=== PATIENT | male | born 1970 | race Caucasian/White ===

== ENCOUNTER → 2020-09-29 | Outpatient (CLI) | payer OTHER ==
--- NOTE | 2020-09-30 07:13 | CTL ---
EXAMINATION TYPE: CT Low Dose Lung DATE OF EXAM ORDERED: 09/29/2020 COMPARISON: HISTORY: . Low Dose CT Lung Screening CT DLP: 64.[address] CTDI: 1.8 mGy IV CONTRAST USED: None. SCREENING VISIT: First visit COMPARISON: None. TECHNIQUE: Low dose computed tomography scan was performed through the chest at 1 millimeter thick se ctions and reconstructed images in the coronal plane at [address] DIAGNOSTIC QUALITY: Satisfactory FINDINGS: LUNG NODULES: No discrete pulmonary nodules or masses seen. No infiltrates identified. LUNGS: COPD: Severity: None Fibrosis: Severity:None Lymph nodes: None Other findings: None RIGHT PLEURAL SPACE: Effusion: None Calcification: None Thickening: None Pneumothorax: None LEFT PLEURAL SPACE: Effusion: None Calcification: None Thickening: None Pneumothorax: None HEART: Heart Size: Mildly enlarged Coronary calcification: Mild Pericardial effusion: None OTHER FINDINGS: Upper abdomen: No significant abnormality Bony thorax: Degenerative changes Supraclavicular region: No significant abnormalityOther: No significant abnormalityI IMPRESSION: Benign FOLLOW UP CT CHEST RECOMMENDATION: Follow-up screening in one year. Smoking cessation recommended. CT LUNG RAD: LUNG RAD CATEGORY 1 negative
== END | disposition home or self-care (01) ==
LOC: RADCTMAIN 15:41
PROVIDERS: ATTEND Family Medicine
DX: Z12.2 Encounter for screening for malignant neoplasm of respiratory organs (principal)
CPT/HCPCS: 71271

== ENCOUNTER 2021-06-10 09:20 | Day surgery (SDC) | payer OTHER ==
[2021-06-07 16:27] VITALS: BMI 27.2
[~2021-06-10 09:20] MED LIST: LACTATED RINGERS 1,000 ML IV SCH; LIDOCAINE 1% (10MG/ML) FOR IV START INTRADERMA PRN
[2021-06-10 10:22] VITALS: RESP 16; TEMP 97.9
[2021-06-10] MEDS ORDERED: LIDOCAINE 2% INJ 20 MG/ML (2 ML VIAL) ONE (10:32)
[2021-06-10] MEDS ORDERED: PROPOFOL 10 MG/ML 20 ML VIAL IV ONE (10:32)
--- NOTE | 2021-06-10 10:34 | P.GSHP ---
History of Present Illness H&P Date: 06/10/21 Chief Complaint: Screening colonoscopy Is a 51-year-old male presents today for screening colonoscopy. Patient denies a significant GI complaints. Past Medical History Past Medical History: Hypertension History of Any Multi-Drug Resistant Organisms: MRSA Date of last positivie culture/infection: 2007 MDRO Source:: NOSE Past Surgical History: No Surgical Hx Reported Past Anesthesia/Blood Transfusion Reactions: Motion Sickness Additional Past Anesthesia/Blood Transfusion Reaction / Comment(s): NO ANESTHESIA HX. Past Psychological History: No Psychological Hx Reported Smoking Status: Current every day smoker Past Alcohol Use History: Daily Additional Past Alcohol Use History / Comment(s): SMOKES 1 PPD OR LESS, STARTED SMOKING AGE 21. DRINKS 3 BEERS /DAY. Past Drug Use History: None Reported Medications and Allergies Home Medications Medication Instructions Recorded Confirmed Type Tadalafil [Cialis] 5 mg PO DAILY 06/07/21 06/10/21 History Vitamin D 1 dose PO WEEKLY 06/07/21 06/10/21 History amLODIPine BESYLATE 10 mg PO DAILY 06/07/21 06/10/21 History buPROPion SR [Wellbutrin SR] 150 mg PO DAILY 06/07/21 06/10/21 History Allergies Allergy/AdvReac Type Severity Reaction Status Date / Time No Known Allergies Allergy Verified 06/10/21 09:54 Surgical - Exam Vital Signs Temp Pulse Resp BP Pulse Ox 97.9 F 89 16 149/95 99 06/10/21 10:12 06/10/21 10:12 06/10/21 10:12 06/10/21 10:12 06/10/21 10:12 - General well developed, well nourished, no distress - Eyes PERRL - ENT normal pinna - Neck no masses - Respiratory normal expansion - Cardiovascular Rhythm: regular - Abdomen Abdomen: soft, non tender Assessment and Plan Assessment: We'll perform screening colonoscopy
--- NOTE | 2021-06-10 11:12 | P.OP ---
Date of Procedure: 06/10/21 Preoperative Diagnosis: Screening colonoscopy Postoperative Diagnosis: Rectal polyp Sigmoid colon polyp Procedure(s) Performed: Colonoscopy Anesthesia: MAC Surgeon: Alex Madrigal Pathology: other (Rectal polyp, sigmoid colon polyp) Condition: stable Disposition: PACU Description of Procedure: Patient's placed on the endoscopy table in the lateral position. Received IV sedation. Digital rectal exam was performed which revealed external hemorrhoids. Flexible colonoscope was then placed patient anus and passed rotator entire colon. The ileocecal valve was visualized. The cecum, ascending and transverse colon appeared normal. The descending colon was normal. In the sigmoid colon There was a small polyp was removed with the snare. Scope was brought back the rectum and a bigger polyp was seen was removed with the snare and cold forcep. Scope withdrawn for patient.
[2021-06-10 11:27] VITALS: BP 155/97; PULSE 83
== END 2021-06-10 11:55 | disposition home or self-care (01) ==
LOC: ORWHC2ENDO 09:20
PROVIDERS: ATTEND Surgery
DX: Z12.11 Encounter for screening for malignant neoplasm of colon (principal); D12.5 Benign neoplasm of sigmoid colon; D12.8 Benign neoplasm of rectum; I10 Essential (primary) hypertension; F17.200 Nicotine dependence, unspecified, uncomplicated; Z79.899 Other long term (current) drug therapy
CPT/HCPCS: 45385; 88305; J2704; J2001

== ENCOUNTER → 2022-11-08 | Outpatient (CLI) | payer OTHER ==
--- NOTE | 2022-11-09 10:09 | CTL ---
EXAMINATION TYPE: CT Low Dose Lung DATE OF EXAM ORDERED: 11/08/2022 HISTORY: . Lung cancer screening CT DLP: 127.[address] CTDI: 3.5 mGy Automated exposure control for dose reduction was used. SCREENING VISIT: COMPARISON: 09/29/2020 TECHNIQUE: Low dose computed tomography scan was performed through the chest at 1 mm thick sections a nd reconstructed images in multiple planes at 1 mm and [address] DIAGNOSTIC QUALITY: Satisfactory FINDINGS: LUNG NODULES: None. LUNGS: COPD: Severity: Mild Fibrosis: Severity: None Lymph nodes: No pathologic sized lymph nodes Other findings: Subsegmental areas of atelectasis or scarring. RIGHT PLEURAL SPACE: Effusion: None Calcification: None Thickening: None Pneumothorax: None LEFT PLEURAL SPACE: Effusion: None Calcification: None Thickening: None Pneumothorax: None HEART: Heart Size: Normal Coronary Calcification: None Pericardial Effusion: Trace OTHER FINDINGS: Upper abdomen: Small hiatal hernia. Bony thorax: Hypertrophic and degenerative changes of the spine. Supraclavicular region: None Other: None IMPRESSION: 1. Mild central lobular emphysema with no sizable or suspicious pulmonary nodules. CT LUNG RAD AND CT CHEST RECOMMENDATION: Lung-Rad 2 Benign Appearance or Behavior: Continue annual sc reening with LDCT in 12 months.
== END | disposition home or self-care (01) ==
LOC: RADCTMAIN 16:46
PROVIDERS: ATTEND Family Medicine
DX: Z12.2 Encounter for screening for malignant neoplasm of respiratory organs (principal); J43.2 Centrilobular emphysema; Z87.891 Personal history of nicotine dependence
CPT/HCPCS: 71271

== ENCOUNTER 2022-12-22 07:25 | Day surgery (SDC) | payer OTHER ==
[2022-12-22 07:52] VITALS: TEMP 97
[2022-12-22] MEDS ORDERED: PROPOFOL 10 MG/ML 20 ML VIAL IV ONE (08:19)
--- NOTE | 2022-12-22 08:21 | P.GSHP ---
History of Present Illness H&P Date: 12/22/22 Chief Complaint: History of colon polyps This a 52-year-old male presents today for colonoscopy. Patient has. History of colon polyps. Past Medical History Past Medical History: Hypertension Additional Past Medical History / Comment(s): Past colonoscopy/benign polyps. History of Any Multi-Drug Resistant Organisms: MRSA Date of last positivie culture/infection: 2007 MDRO Source:: NOSE Past Surgical History: No Surgical Hx Reported Additional Past Surgical History / Comment(s): Colonoscopy Past Anesthesia/Blood Transfusion Reactions: No Reported Reaction Additional Past Anesthesia/Blood Transfusion Reaction / Comment(s): NO ANE STHESIA HX. Smoking Status: Former smoker - Past Family History Father Family Medical History: Cancer, Coronary Artery Disease (CAD) Additional Family Medical History / Comment(s): Alive, kidney and lung cancer, CABG Medications and Allergies Home Medications Medication Instructions Recorded Confirmed Type tadalafiL [Cialis] 5 mg PO QAM 06/07/21 12/20/22 History Losartan [Cozaar] 50 mg PO QAM 12/20/22 12/22/22 History Omeprazole 20 mg PO QAM 12/20/22 12/20/22 History Allergies Allergy/AdvReac Type Severity Reaction Status Date / Time No Known Allergies Allergy Verified 12/22/22 07:49 Surgical - Exam Vital Signs Temp Pulse Resp BP Pulse Ox 97.0 F L 82 18 168/102 97 12/22/22 07:39 12/22/22 07:39 12/22/22 07:39 12/22/22 07:39 12/22/22 07:39 - General well developed, well nourished, no distress - Eyes PERRL - ENT normal pinna - Neck no masses - Respiratory normal expansion - Cardiovascular Rhythm: regular - Abdomen Abdomen: soft, non tender Assessment and Plan Assessment: History of colon polyps. We'll perform colonoscopy.
--- NOTE | 2022-12-22 08:33 | P.OP ---
Date of Procedure: 12/22/22 Preoperative Diagnosis: History of colon polyps Postoperative Diagnosis: Normal colonoscopy Procedure(s) Performed: Colonoscopy Anesthesia: BECKY Surgeon: Alex Madrigal Pathology: none sent Condition: stable Disposition: PACU Description of Procedure: PROCEDURE: The patient was placed on the endoscopy table in the lateral position. Digital rectal examination was performed which revealed no abnormalities. The prostate was symmetrical without nodules. Flexible colonoscope was then placed in the patient's anus and passed throughout the entire colon. The ileocecal valve was visualized. The cecum, ascending, transverse, descending and sigmoid colon were normal. The rectum was normal as well. There were no masses, polyps or diverticula noted in the entire colon. SUMMARY OF FINDINGS: Normal colonoscopy.
[2022-12-22 09:10] VITALS: BP 152/88; PULSE 78; RESP 18
== END 2022-12-22 09:29 | disposition home or self-care (01) ==
LOC: ORWHC2ENDO 07:25
PROVIDERS: ATTEND Surgery
DX: Z12.11 Encounter for screening for malignant neoplasm of colon (principal); I10 Essential (primary) hypertension; Z79.899 Other long term (current) drug therapy; Z86.010 Personal history of colon polyps; Z87.891 Personal history of nicotine dependence; Z80.1 Family history of malignant neoplasm of trachea, bronchus and lung; Z82.49 Family history of ischemic heart disease and other diseases of the circulatory system
CPT/HCPCS: 45378; J2704

== ENCOUNTER → 2023-12-22 | Outpatient (CLI) | payer OTHER ==
--- NOTE | 2023-12-23 19:43 | CTL ---
EXAMINATION TYPE: CT Low Dose Lung DATE OF EXAM: 12/22/2023 6:21 PM COMPARISON: 11/08/2022 CLINICAL INDICATION: Male, 53 years old with history of Z12.2 SCREENING LUNG CANCER, Z87.891 NICOTINE , Nicotine dependence of 1ppd x30 years. Quit smoking , Lung cancer screening, History of tob acco use. TECHNIQUE: Low dose computed tomography scan was performed through the chest at 1 mm thick sections a nd reconstructed images in the coronal plane at 1 mm thick sections. Contrast used: mL of , (none if empty) Oral contrast used: (none if empty) CT DLP: 99 mGycm, Automated exposure control for dose reduction was used. CT CTDI: 2.6 mGy, Automated exposure control for dose reduction was used. SCREENING VISIT: CT DIAGNOSTIC QUALITY: Satisfactory FINDINGS: LUNG NODULES: None. LUNGS: COPD: Severity: None Fibrosis: Severity: None Lymph nodes: None Other findings: None RIGHT PLEURAL SPACE: Effusion: None Calcification: None Thickening: None Pneumothorax: None LEFT PLEURAL SPACE: Effusion: None Calcification: None Thickening: None Pneumothorax: None HEART: Other: Ascending thoracic aorta at the level the main pulmonary artery measures 3.5 cm. The main pul monary artery at the bifurcation measures2.5 cm. Heart Size: Normal Coronary calcification: None Pericardial effusion: None OTHER FINDINGS: Upper abdomen: Normal Bony thorax: Normal Supraclavicular region: Normal IMPRESSION: 1. No suspicious changes for primary or metastatic neoplasm FOLLOW UP CT CHEST RECOMMENDATION: Follow-up low-dose CT chest one year CT LUNG RAD: Lung-Rad 1 Negative [facility], , 12/23/2023 7:41 PM
== END | disposition home or self-care (01) ==
LOC: RADCTMAIN 17:16
PROVIDERS: ATTEND Family Medicine
DX: Z12.2 Encounter for screening for malignant neoplasm of respiratory organs (principal); Z87.891 Personal history of nicotine dependence
CPT/HCPCS: 71271

== ENCOUNTER → 2024-01-02 | Outpatient (CLI) | payer OTHER ==
--- NOTE | 2024-01-05 17:05 | MR ---
INDICATION: Patient age:Male; 53 years old; Reason for study: M41.9, M54.16, M54.42; [facility]. COMPARISONS: No priors. TECHNIQUE: Multi planar, multi sequence imaging was performed utilizing: T1-weighted, T2-weighted, a nd turbo inversion recovery imaging of the lumbar spine. The patient was not given contrast. FINDINGS: The lumbar vertebral bodies do have preserved heights. Grade 1 anterolisthesis of L5 on S1 with bilateral pars defects. Multilevel disc desiccation is present with disc height loss most prono unced at L1-L2. Prominent anterior osteophyte at L1-L2 with type II Modic changes involving the endp lates at this level. The conus medullaris and the distal spinal cord do appear unremarkable with rega rds to their signal intensity and morphology. L1-L2: Bulge without significant effacement of the anterior thecal sac. No neural foraminal stenosi s. L2-L3: No significant disc pathology is identified. The spinal canal and neural foramen are patent. L3-L4: No significant disc pathology is identified. The spinal canal and neural foramen are patent. L4-L5: Left paracentral/subarticular zone disc extrusion with caudal migration approximately 1.2 cm. Results in mild effacement of the anterior left thecal sac. There is effacement of the exiting L5 ner ve root with abutment of the traversing left S1 nerve root. Bilateral facet arthropathy. Moderate lef t neural foramen stenosis. The right neural foramen is patent. L5-S1: Grade 1 anterolisthesis with uncovering of the disc. Posterior annular fissure identified. No significant effacement of the anterior thecal sac. Bilateral facet arthropathy with bilateral pars de fects. No significant neural foraminal stenosis. Other significant findings: None. IMPRESSION: 1. Large disc herniation at L4-L5 with caudal migration resulting in effacement of the exiting left L 5 nerve root and abutment of the traversing left S1 nerve root. There is mild effacement of the anter ior lateral left thecal sac. 2. Multilevel disc degeneration with associated osteoarthritic changes. 3. Grade 1 anterolisthesis of L5 on S1 with bilateral pars defects. [facility], , 01/05/2024 5:03 PM
== END | disposition home or self-care (01) ==
LOC: RADMRIMAIN 19:45
PROVIDERS: ATTEND Family Medicine
DX: M51.16 Intervertebral disc disorders with radiculopathy, lumbar region (principal); M43.17 Spondylolisthesis, lumbosacral region; M41.9 Scoliosis, unspecified
CPT/HCPCS: 72148